=== PATIENT | male | born 1965 | race Caucasian/White ===

== ENCOUNTER 2020-11-08 09:16 | Emergency (ER) | payer BC ==
[~2020-11-08 09:16] MED LIST: CIPRO500 MG PO
[2020-11-08 10:00] LABS: HEMOGLOBIN 14.4 gm/dl (14.0-17.5); RED BLOOD COUNT 4.54 M/UL (4.20-5.50); WHITE BLOOD COUNT 12.1 K/UL (4.5-11.0)
[2020-11-08 10:22] LABS: BUN/CREATININE RATIO 19 (0-10)
== END 2020-11-08 11:50 | disposition home or self-care (01) ==
LOC: ER1 09:16
PROVIDERS: Emergency Medicine
DX: I47.1 Supraventricular tachycardia (principal)
CPT/HCPCS: 80053; 82550; 82553; 83735; 83874; 84484; 85025; 93005; 96374; 99285; J0153

== ENCOUNTER → 2021-01-07 | Outpatient (CLI) | payer BC | LOC: ECHO 10:00 | DX: I47.1 Supraventricular tachycardia (principal); I08.1 Rheumatic disorders of both mitral and tricuspid valves | CPT/HCPCS: ECHO; 71046; 93306 ==

== ENCOUNTER 2021-01-11 09:42 | Outpatient (CLI) | payer BC ==
[~2021-01-11] VITALS: Ht 177.8 cm; Wt 79.4 kg
[2021-01-11] MEDS ORDERED: LIPITOR20 MG PO (10:54)
[2021-01-11] MEDS ORDERED: LISINOPRIL20 MG PO (10:55)
== END 2021-01-12 08:38 | disposition home or self-care (01) ==
LOC: CATH 09:42 → PROG CARE 14:42 → CATH 01-12 08:38
DX: I47.1 Supraventricular tachycardia (principal); F17.210 Nicotine dependence, cigarettes, uncomplicated; R55 Syncope and collapse; I10 Essential (primary) hypertension; Z20.822 Contact with and (suspected) exposure to COVID-19
CPT/HCPCS: 93005; 93609; 93623; 93624; 99152; 99153; C1730; C1733; C1766; J0461; J1644; J2250; J3010; J7040